=== PATIENT | male | born 1965 | race African-American/Black ===

== ENCOUNTER 2020-06-11 03:44 | Emergency (ER) | payer BC, SELFPAY ==
[2020-06-11 03:48] VITALS: BP 137/98; PULSE 107; RESP 16; TEMP 36.3; O2SAT 96
[2020-06-11 03:53] VITALS: BP 182/99; PULSE 102; RESP 20; TEMP 36.3; O2SAT 98
[2020-06-11] MEDS: HYDROmorphone HCL INJ (*CRX) 1 MG/ML SYR IM (04:12)
--- NOTE | 2020-06-11 04:23 | PC.NURSE ---
Pt traveling. Pt is from [place]. Pt reports having lumbar surgery in Apr and has chronic low back pain. Pt reports after sleeping on a soft mattress he has increased pain despite taking [place] 10/325 at midnight. No numbness/tingling/radiation of pain.
--- NOTE | 2020-06-11 04:26 | ED.BACK ---
HPI - Back Pain/Injury General Chief Complaint: Back Pain/Injury Stated Complaint: back pain Time Seen by Provider: 06/11/20 04:05 History of Present Illness HPI Narrative: 54 yo male w/ h/o morbid obesity, chronic back pain s/p lumbar fusion in April presents to the ED for back pain. He got into town yesterday and spent the night in a hotel bed. When he tried to get up he was barely able to stand or walk due to the pain. He tried taking his home pain medication, 10 mg hydrocodone acetaminophen, which did not help. No weakness, numbness, injury. Related Data Allergies Allergy/AdvReac Type Severity Reaction Status Date / Time No Known Allergies Allergy Verified 06/11/20 05:37 Review of Systems Review of Systems: All systems reviewed & are unremarkable except as noted in HPI and below Constitutional: Constitutional: Denies fever(s) and Denies weakness Eyes: Eyes: Reports no additional eye complaints ENT: Denies dizziness Cardiovascular: Cardiovascular: Denies chest pain Respiratory: Respiratory: Denies dyspnea Gastrointestinal: Gastrointestinal: Denies abdominal pain and Denies nausea Genitourinary: Genitourinary: Reports no additional male genitourinary complaints Musculoskeletal: Musculoskeletal: Reports back pain Neurologic: Denies numbness and Denies weakness [facility] Past Medical History Medical History (Updated 06/11/20 @ 06:49 by Afshin Messer MD) Diabetes Fusion of lumbar spine Hypertension Social History Social History (Updated 06/11/20 @ 04:31 by Afshin Messer MD) Gender identity (if verbalized by the patient): Male Sexual Orientation (if Verbalized by the Patient): Straight or Heterosexual Exam Const: General: no acute distress and alert Nutritional Appearance: obese morbidly obese Orientation/consciousness: patient oriented x3 HENMT: Head: normal to inspection Neck: Neck: normal visual inspection Resp: Effort & Inspection: normal respiratory effort Skin: General skin exam: normal color Neuro: General: patient oriented x3, moves all extremities, no focal motor deficits and CN's II-XI intact bilaterally Speech: normal speech Extrem: General: normal to inspection Psych: Appearance: grossly normal and well kempt Mental Status: mental status grossly normal Affect: normal affect Attitude: cooperative Course Vital Signs Vital signs: Vital Signs Temperature 36.3 C L 06/11/20 03:48 Pulse Rate 107 H 06/11/20 03:48 Respiratory Rate 16 06/11/20 03:48 Blood Pressure 137/98 H 06/11/20 03:48 Pulse Oximetry 96 06/11/20 03:48 Temperature 36.3 C L 06/11/20 03:53 Pulse Rate 83 06/11/20 06:09 Respiratory Rate 20 06/11/20 06:09 Blood Pressure 147/95 H 06/11/20 06:09 Pulse Oximetry 95 06/11/20 06:09 MDM - Back Pain/Injury MDM Narrative Medical decision making narrative: Chronic low back pain exacerbated by sleeping conditions. After IM Dilaudid he slept soundly for awhile before waking up and saying that his pain hadn't changed. It was explained to him that we could not give him another dose of pain medication and discharge him to drive back to [place]. Differential Diagnosis Differential diagnosis: Likely sciatica, strain of lumbar region and other (DJD) Medical Records Attestation: I reviewed the patient's medical records. Discharge Plan Discharge Clinical Impression: Low back pain Qualifiers: Chronicity: chronic Back pain laterality: bilateral Sciatica presence: without sciatica Qualified Code(s): M54.5 - Low back pain Patient Disposition: Home, Self-Care Condition: Stable Instructions: Back Pain (ED) Follow-up/Referrals: PHYSICIAN NOT ON STAFF,NONSTAFF [Primary Care Provider] - Shen Yin MD [Physician] -
[2020-06-11 04:57] VITALS: BP 140/91; PULSE 89; RESP 18; O2SAT 97
--- NOTE | 2020-06-11 04:58 | PC.NURSE ---
Pt reports pain is now 7/10. Pt is moved from the wheelchair to ER Cot.
[2020-06-11 06:09] VITALS: BP 147/95; PULSE 83; RESP 20; O2SAT 95
--- NOTE | 2020-06-11 06:15 | PC.NURSE ---
Pt asking for stronger pain medication. Pt up to wheelchair where he feels better. EDP informed and orders received.
[2020-06-11] MEDS: KETOROLAC (*BKC) 60 MG/2 ML VIAL IM (06:21)
[2020-06-11 07:00] VITALS: BP 149/72; PULSE 72; RESP 20; O2SAT 97
--- NOTE | 2020-06-11 07:00 | PC.NURSE ---
Pt reports feeling much better and moves much easier.
== END 2020-06-11 07:00 | disposition home or self-care (01) ==
PROVIDERS: Emergency Provider Emergency Medicine
DX: M54.5 Low back pain (principal); E11.9 Type 2 diabetes mellitus without complications; I10 Essential (primary) hypertension
CPT/HCPCS: 96372; 99284; J1170; J1885